=== PATIENT | male | born 1930 | race Caucasian/White ===

== ENCOUNTER 2017-05-13 14:13 | Emergency (ER) | payer SELFPAY ==
[~2017-05-13] VITALS: Ht 157.5 cm; Wt 56.8 kg
[2017-05-13 14:25] VITALS: BP 147/69
[2017-05-13] MEDS ORDERED: DONE10TA8 PO (14:53)
[2017-05-13] MEDS ORDERED: QUET25TA PO (14:53)
[2017-05-13] MEDS ORDERED: METF500T4 PO (14:53)
[2017-05-13] MEDS ORDERED: SIMV-260 PO (14:53)
[2017-05-13] MEDS ORDERED: ASPI81 PO (14:53)
[2017-05-13] MEDS ORDERED: OMEP20 PO (14:53)
== END 2017-05-13 17:17 | disposition left against medical advice (07) ==
LOC: EMS 14:15
DX: M25.551 Pain in right hip (principal); R07.81 Pleurodynia; I10 Essential (primary) hypertension; E11.9 Type 2 diabetes mellitus without complications; W18.39XA Other fall on same level, initial encounter; Y93.89 Activity, other specified; Y92.89 Other specified places as the place of occurrence of the external cause; Y99.8 Other external cause status; Z53.21 Procedure and treatment not carried out due to patient leaving prior to being seen by health care provider